=== PATIENT | male | born 1975 | race Caucasian/White ===

== ENCOUNTER 2022-11-08 09:30 | Emergency (ER) | payer BC, OTHER, SELFPAY ==
[2022-11-08] MEDS ORDERED: Ibuprofen 200 MG TAB ONE (10:07)
[2022-11-08] MEDS ORDERED: Dexameth. Sod Phosp. 10 MG/ML (CHEMO USE ONLY) ONE ×2 (10:07→12:52)
[2022-11-08] MEDS ORDERED: cefTRIAXone (ROCEPHIN) 2 GM VIAL ONE (11:07)
== END 2022-11-08 12:57 | disposition home or self-care (01) ==
LOC: ERS 09:30
DX: J36 Peritonsillar abscess (principal)
CPT/HCPCS: 70491; 87081; 87430; 96365; J0696; J1100

== ENCOUNTER 2023-02-15 12:11 | Emergency (ER) | payer BC ==
[2023-02-15] MEDS ORDERED: Ketorolac Tromethamine 30 MG/ML VIAL ONE (13:25)
== END 2023-02-15 13:27 | disposition home or self-care (01) ==
LOC: ERS 12:11
DX: M54.9 Dorsalgia, unspecified (principal)
CPT/HCPCS: 96372; 99283; J1885